=== PATIENT | female | born 1990 | race Hispanic/Latino ===

== ENCOUNTER 2020-02-08 09:51 | Outpatient (CLI) | payer OTHER ==
--- NOTE | 2020-02-08 12:43 | ULT ---
OB ULTRASOUND: Date: 02/08/2020 HISTORY: Size and dates. FINDINGS: Real-time imaging of the pelvis shows a single viable intrauterine in a vertex presentation . Placenta is anterior in location without evidence of previa. Review of anatomy showed normal appearing cord insertion, four chamber heart, extremities, thre e vessel cord, bladder. Due to head orientation, posterior fossa structures were not well visualized. No anomalies were detected. Spine was slightly difficult to assess due to position, but again no abn ormalities. measurements are as follows: BPD: 4.8 cm, 20 weeks/5 days HC: 18.0 cm, 20 weeks/3 days AC: 15.7 cm, 20 weeks/6 days FL: 3.4 cm, 20 weeks6 days Amniotic fluid index was 11. Visually, the amniotic fluid appears borderline low. IMPRESSION: 1. Single viable intrauterine . Overall measurements corresponding to a gestational age of 20 weeks/5 days. Estimated date of deliver is 06/22/2020. 2. Placenta which is anterior in location without evidence of previa. 3. Amniotic fluid index was 11. Visually, the fluid appeared borderline low. POS: [facility]
== END 2020-02-08 09:52 | disposition home or self-care (01) ==
LOC: BICULT 09:51
PROVIDERS: ATTEND Family Medicine
DX: O09.92 Supervision of high risk pregnancy, unspecified, second trimester (principal); Z3A.20 20 weeks gestation of pregnancy
CPT/HCPCS: 76805

== ENCOUNTER 2024-10-22 11:03 | Emergency (ER) | payer MEDICAID, SELFPAY ==
[2024-10-22 12:02] LABS: %Basophils 1.2 % (0.0-1.0); %Eosinophils 4.4 % (0.0-10.0); %Lymphocytes 35.2 % (21.0-51.0); %Monocytes 7.6 % (0.0-10.0); %Neutrophils 51.4 % (42.0-75.0); Hematocrit 30.7 % (36.0-47.0); Hemoglobin 8.9 g/dL (12.0-16.0); Mean Corpuscular Hemoglobin 19.9 pg (27.0-31.0); Mean Corpuscular Volume 68.7 fL (78.0-98.0); Mean Platelet Volume 11.4 fL (7.4-10.4); Platelet Count 387 10x3/uL (130-400); RBC Distribution Width 18.9 % (11.5-14.5); Red Blood Cell (RBC) Count 4.47 mill/uL (4.20-5.40)
[2024-10-22 12:21] LABS: ALT (SGPT) 12 U/L (8-55); AST (SGOT) 21 U/L (5-34); Albumin 3.9 g/dL (3.5-5.0); Alkaline Phosphatase 76 U/L (40-110); Anion Gap 13 mmol/L (10-20); BUN (Urea Nitrogen) 13 mg/dL (7.0-18.7); Bilirubin, Total 0.2 mg/dL (0.2-1.2); Calc. Creatinine Clearance 0 mL/min (70-130); Calcium 8.6 mg/dL (7.8-10.44); Carbon Dioxide 19 mmol/L (22-29); Chloride 110 mmol/L (98-107); Estimated GFR 117; Globulin 3.8 g/dL (2.4-3.5); Glucose 111 mg/dL (70-105); Potassium 4.1 mmol/L (3.5-5.1); Protein, Total 7.7 g/dL (6.0-8.3); Sodium 138 mmol/L (136-145)
[2024-10-22 12:25] LABS: Troponin I Less than 0.010 ng/mL (< 0.028)
[2024-10-22 12:37] LABS: Burr Cells SLIGHT = 2-5 cells HPF (0-1); Hypochromia SLIGHT = 6-15 cells HPF (0-5); Microcytosis SLIGHT = 6-15 cells HPF (0-5); Platelet Adequacy Comment Platelets Normal; Polychromasia SLIGHT = 2-3 cells HPF (0-2)
[2024-10-22] MEDS ORDERED: Acetaminophen 500 MG TAB ONE (13:17)
== END 2024-10-22 13:56 | disposition home or self-care (01) ==
LOC: ERS 11:03
DX: R07.9 Chest pain, unspecified (principal); X50.0XXA Overexertion from strenuous movement or load, initial encounter; Y93.89 Activity, other specified; Z55.6 Problems related to health literacy
CPT/HCPCS: 36415; 71045; 80053; 84484; 85025; 85379; 93005